=== PATIENT | female | born 1940 | race Caucasian/White ===

== ENCOUNTER 2016-12-07 12:36 | Emergency (ER) | payer OTHER ==
[~2016-12-07 12:36] MED LIST: ASPIRIN EC81 MG PO; ASPIRIN325 MG PO; ATROVENT0.03 % IN; CARAFATE EQUIVAL1 GM PO; CARVEDILOL6.25 MG PO; CLOPIDOGREL75 MG PO; FUROSEMIDE20 MG PO; LISINOPRIL/HYDR1 TA2 PO; LISINOPRIL10 MG PO; PROAIR HFA IN; PROTONIX40 MG PO; SIMVASTATIN40 MG PO; SPIRONOLACTONE25 MG PO; SUCRALFATE1 GM PO
--- NOTE | 2016-12-07 15:46 | ED NURSING NOTES ---
Clinical Report - Nurses [place] [address] [place] [address] 12/07/2016 12:38 [id number] TRI[facility] Triage time 12:50. Acuity: LEVEL 4. Chief Complaint: RIGHT LOWER EXTREMITY PAIN. Alert. No acute distress. SHAHAB COMA SCORE: Shahab Coma Scale: 15- eyes open spontaneously (4); best verbal response- oriented x 4 (5); best motor response- obeys commands (6). --13:11 Miladys Contreras R.N. 13:08 12/07/16. BP: 130/96. HR: 70. RR: 18. O2 saturation: 100% on room air. Temp: 98.2 F (oral). Pain level now: 02/23. --13:11 Miladys Contreras R.N. Weight: 57.1 kg stated. Height/Length: 66 inches Per Patient. BMI: 20.3. --12:56 Miladys Contreras R.N. Medications Aspirin Oral (Tablet 81 mg) 1 tablet, day. Atrovent HFA Inhalation 2 puffs, 4x a day. Carvedilol 12.5mg , 2x a day. Lisinopril Oral 10 mg, daily. ProAir HFA Inhalation 2 puffs, 4-6 hrs as needed. Simvastatin Oral 40 mg, daily. --12:52 Miladys Contreras R.N. Flexeril 10 mg, PRN. --12:52 Miladys Contreras R.N. Lasix Oral 5 mg, daily. --12:52 Miladys Contreras R.N. Melatonin Oral (Tablet 3 mg), qHS. --12:53 Miladys Contreras R.N. Medication/allergy information source: the patient's family. --13:11 Miladys Contreras R.N. Allergies No Known Drug Allergy. --12:53 Miladys Contreras R.N. History Arrived by private vehicle. Historian: patient and family. Accompanied by family. Primary physician (Leida). No injury occurred. This occurred (about 45 days). ( saw her doctor last week and got Flexeril and Tylenos). She has had trouble walking. SOCIAL HX: Heavy tobacco smoker- less than 1 pack per day. No alcohol use or drug use. LEARNING NEEDS ASSESSMENT: The learning needs assessment revealed no barriers. FALL RISK ASSESSMENT: Fall risk assessment completed. Risk factors identified include patient age greater than 65 years and impairment of mobility. FUNCTIONAL ASSESSMENT: Functional assessment performed: independent with the activities of daily living; mobility impairment present- this mobility impairment is an ongoing problem. lives alone now but will be going home with family. --13:11 Miladys Contreras R.N. PROBLEMS: Sciatica. Congestive Heart Failure. Hypomagnesemia. Atrial Fibrillation. Hemorrhoids. Enlarged xyphoid. Hiatal Hernia. Ulcer (stomach). Abdominal Pain. UTI - Urinary Tract Infection. Hypertension. Immunizations. CVA - Cerebrovascular Accident. --12:54 Miladys Contreras R.N. ADDITIONAL SURGERIES: Back Surgery. Colonoscopy. Feet surgery. Rt hip repair. --12:54 Miladys Contreras R.N. Assessment GENERAL / NEURO / PSYCH: Alert. Oriented X 4. Appears in no acute distress. Patient appears calm and cooperative. RESPIRATORY: Respirations not labored. --13:11 Miladys Contreras R.N. Interventions ID band on patient. To waiting room. --13:11 Miladys Contreras R.N. DISPOSITION / DISCHARGE Departure time: 1430. The patient left the Emergency Department without being seen by a physician. The patient appears to be alert, oriented x4 and in no acute distress. She stated is leaving the ED due to the long waiting time (gave chart to admitting rep). She left the Emergency Department in a wheelchair and via private vehicle. --14:48 Miladys Contreras R.N. Locked/Released at 12/07/2016 15:46 by Miladys Contreras R.N.
--- NOTE | 2016-12-07 15:46 | ED MAR SUMMARY ---
..... Medication Administration Record [facility] [address] [place], [place] [id number] Patient: CORINA LOCKETT Visit ID: [id number] 75y, F Weight: 57.1 kg Height/Length: 66 in BMI: 20.3 ALLERGIES: No Known Drug Allergy
--- NOTE | 2016-12-07 15:46 | ED MED RECONCILIATION SUMMARY ---
Patient: CORINA LOCKETT Medication Reconciliation Report [facility] VisitID: [id number] [address] [place] [address] 75y, F Registration Date/Time: 12/07/2016 Weight: 57.1 kg Height/Length: 66 in. BMI: 20.3 ALLERGIES: No Known Drug Allergy The patient's Home Medications are listed below: THE FOLLOWING MEDICATIONS NEED TO BE RECONCILED: Aspirin Oral (81 mg) 1 tablet, day Atrovent HFA Inhalation 2 puffs, 4x a day Carvedilol 12.5mg , 2x a day Flexeril 10 mg, PRN Lasix Oral 5 mg, daily Lisinopril Oral 10 mg, daily Melatonin Oral (3 mg), qHS ProAir HFA Inhalation 2 puffs, 4-6 hrs Simvastatin Oral 40 mg, daily The source(s) of the original Home Medication information: patient's family member The following Medications were given to the patient in the Emergency Department: None. The following Medications were prescribed to the patient: None.
--- NOTE | 2016-12-07 15:46 | ED MAR SUMMARY ---
..... Medication Administration Record [facility] [address] [place] [place], [place] [id number] Patient: CORINA LOCKETT Visit ID: [id number] 75y, F Weight: 57.1 kg Height/Length: 66 in BMI: 20.3 ALLERGIES: No Known Drug Allergy
--- NOTE | 2016-12-07 15:46 | ED NURSING NOTES ---
Clinical Report - Nurses [place] [address] [place] [address] 12/07/2016 12:38 [id number] TRI[facility] Triage time 12:50. Acuity: LEVEL 4. Chief Complaint: RIGHT LOWER EXTREMITY PAIN. Alert. No acute distress. SHAHAB COMA SCORE: Shahab Coma Scale: 15- eyes open spontaneously (4); best verbal response- oriented x 4 (5); best motor response- obeys commands (6). --13:11 Miladys Contreras R.N. 13:08 12/07/16. BP: 130/96. HR: 70. RR: 18. O2 saturation: 100% on room air. Temp: 98.2 F (oral). Pain level now: 02/23. --13:11 Miladys Contrears R.N. Weight: 57.1 kg stated. Height/Length: 66 inches Per Patient. BMI: 20.3. --12:56 Miladys Contreras R.N. Medications Aspirin Oral (Tablet 81 mg) 1 tablet, day. Atrovent HFA Inhalation 2 puffs, 4x a day. Carvedilol 12.5mg , 2x a day. Lisinopril Oral 10 mg, daily. ProAir HFA Inhalation 2 puffs, 4-6 hrs as needed. Simvastatin Oral 40 mg, daily. --12:52 Miladys Contreras R.N. Flexeril 10 mg, PRN. --12:52 Miladys Contreras R.N. Lasix Oral 5 mg, daily. --12:52 Miladys Contreras R.N. Melatonin Oral (Tablet 3 mg), qHS. --12:53 Miladys Contreras R.N. Medication/allergy information source: the patient's family. --13:11 Miladys Contreras R.N. Allergies No Known Drug Allergy. --12:53 Miladys Contreras R.N. History Arrived by private vehicle. Historian: patient and family. Accompanied by family. Primary physician (Leida). No injury occurred. This occurred (about 45 days). ( saw her doctor last week and got Flexeril and Tylenos). She has had trouble walking. SOCIAL HX: Heavy tobacco smoker- less than 1 pack per day. No alcohol use or drug use. LEARNING NEEDS ASSESSMENT: The learning needs assessment revealed no barriers. FALL RISK ASSESSMENT: Fall risk assessment completed. Risk factors identified include patient age greater than 65 years and impairment of mobility. FUNCTIONAL ASSESSMENT: Functional assessment performed: independent with the activities of daily living; mobility impairment present- this mobility impairment is an ongoing problem. lives alone now but will be going home with family. --13:11 Miladys Contreras R.N. PROBLEMS: Sciatica. Congestive Heart Failure. Hypomagnesemia. Atrial Fibrillation. Hemorrhoids. Enlarged xyphoid. Hiatal Hernia. Ulcer (stomach). Abdominal Pain. UTI - Urinary Tract Infection. Hypertension. Immunizations. CVA - Cerebrovascular Accident. --12:54 Miladys Contreras R.N. ADDITIONAL SURGERIES: Back Surgery. Colonoscopy. Feet surgery. Rt hip repair. --12:54 Miladys Contreras R.N. Assessment GENERAL / NEURO / PSYCH: Alert. Oriented X 4. Appears in no acute distress. Patient appears calm and cooperative. RESPIRATORY: Respirations not labored. --13:11 Miladys Contreras R.N. Interventions ID band on patient. To waiting room. --13:11 Miladys Contreras R.N. DISPOSITION / DISCHARGE Departure time: 1430. The patient left the Emergency Department without being seen by a physician. The patient appears to be alert, oriented x4 and in no acute distress. She stated is leaving the ED due to the long waiting time (gave chart to admitting rep). She left the Emergency Department in a wheelchair and via private vehicle. --14:48 Miladys Contreras R.N. Locked/Released at 12/07/2016 15:46 by Miladys Contreras R.N.
--- NOTE | 2016-12-07 15:46 | ED MED RECONCILIATION SUMMARY ---
Patient: CORINA LOCKETT Medication Reconciliation Report [facility] VisitID: [id number] [address] [place] [address] 75y, F Registration Date/Time: 12/07/2016 Weight: 57.1 kg Height/Length: 66 in. BMI: 20.3 ALLERGIES: No Known Drug Allergy The patient's Home Medications are listed below: THE FOLLOWING MEDICATIONS NEED TO BE RECONCILED: Aspirin Oral (81 mg) 1 tablet, day Atrovent HFA Inhalation 2 puffs, 4x a day Carvedilol 12.5mg , 2x a day Flexeril 10 mg, PRN Lasix Oral 5 mg, daily Lisinopril Oral 10 mg, daily Melatonin Oral (3 mg), qHS ProAir HFA Inhalation 2 puffs, 4-6 hrs Simvastatin Oral 40 mg, daily The source(s) of the original Home Medication information: patient's family member The following Medications were given to the patient in the Emergency Department: None. The following Medications were prescribed to the patient: None.
== END 2016-12-07 14:30 | disposition left against medical advice (07) ==
LOC: ED SRH 12:36
DX: Z53.21 Procedure and treatment not carried out due to patient leaving prior to being seen by health care provider (principal)

== ENCOUNTER 2016-12-09 14:31 | Emergency (ER) | payer OTHER ==
--- NOTE | 2016-12-09 16:11 | DIAGNOSTIC IMAGING REPORT ---
PROCEDURE: XR LUMBAR SPINE 2 OR 3 VIEWS INDICATION: LOWER BACK PAIN TECHNIQUE: Three views. COMPARISON: None. FINDINGS: Severe spondylosis with spinal stenosis at L4-5 and L5-S1. Mild spondylosis T12-L3. No evidence of an acute process or fracture. IMPRESSION: 1. Severe spondylosis with spinal stenosis and L4-5 and L5-S1.
--- NOTE | 2016-12-09 16:33 | ED NURSING NOTES ---
Clinical Report - Nurses [facility] [address] [place] [address] 12/09/2016 14:33 Patient: CORINA LOCKETT TRIAGE Triage time 1440. Acuity: LEVEL 3. Chief Complaint: RIGHT LOWER EXTREMITY PAIN and SWELLING. --14:54 Odalys Garcia R.N. 14:40 12/09/16. BP: 147/84. HR: 93. RR: 18. O2 saturation: 96%. Temp: 99 F. Pain level now: 03/26. --14:54 Odalys Garcia R.N. Weight: 57.1 kg stated. Height/Length: 66 inches Per Patient. BMI: 20.3. --14:51 Odalys Garcia R.N. Medications Aspirin Oral (Tablet 81 mg) 1 tablet, day. Atrovent HFA Inhalation 2 puffs, 4x a day. Carvedilol 12.5mg , 2x a day. Flexeril 10 mg, PRN. Lasix Oral 5 mg, daily. Lisinopril Oral 10 mg, daily. Melatonin Oral (Tablet 3 mg), qHS. ProAir HFA Inhalation 2 puffs, 4-6 hrs as needed. --14:52 Odalys Garcia R.N. Simvastatin Oral 40 mg, daily. --14:52 Odalys Garcia R.N. Allergies No Known Drug Allergy. --14:52 Odalys Garcia R.N. History Arrived by private vehicle. Historian: patient. Accompanied by daughter. Primary physician (howard). This occurred (has had right sided hip and back pain x 3 weeks, pt brought in by daughter because she hasnt been able to go upstairs into her own house for 3 days and has had to sleep at her daughters house. Pt also states that left hip is hurting now also). She has had swelling and trouble walking. ( has hx of hip replacement, and sciatica). SOCIAL HX: Light tobacco smoker (cigarette)- less than 1/2 a pack per day. No alcohol use or drug use. --14:54 Odalys Garcia R.N. PROBLEMS: Sciatica. Congestive Heart Failure. Hypomagnesemia. Atrial Fibrillation. Hemorrhoids. Enlarged xyphoid. Hiatal Hernia. Ulcer (stomach). Abdominal Pain. UTI - Urinary Tract Infection. Hypertension. CVA - Cerebrovascular Accident. --14:51 Odalys Garcia R.N. ADDITIONAL SURGERIES: Back Surgery. Colonoscopy. Feet surgery. Rt hip repair. --14:51 Odalys Garcia R.N. Interventions To treatment room. --14:54 Odalys Garcia R.N. PHYSICAL ASSESSMENT 14:40. To room via wheelchair. Patient gowned. GENERAL / NEURO / PSYCH: Alert. Appears in pain. EXTREMITIES: Limited ROM present. Right hip: tenderness and swelling. Limited ROM. SKIN: Skin is warm and dry. --14:55 Odalys Garcia R.N. NURSING PROGRESS NOTES 14:40. Patient identifiers checked. Call light placed in reach. Side rails up. Bed placed in lowest position. Patient ready for evaluation- chart flagged. --14:54 Odalys Garcia R.N. 15:09 12/09/2016 Percocet (Oxycodone-Acetaminophen) PO 5/325 mg Tablets 1 tab given. Allergies verified, confirmed 5 rights and sedative warning given to the patient. --15:09 Odalys Garcia R.N. 15:09 12/09/16. Patient transported to radiology by stretcher with tech. --15:10 Odalys Garcia R.N. 15:23 12/09/16. Patient returned from radiology by stretcher with tech. --15:23 Odalys Garcia R.N. 16:15 Pt states she has no pain in her hip after meds given "It is such a relief". Pt ambulated to bathroom with walker- repair technician escorting pt . Pt giselle well. --16:22 Odalys Garcia R.N. <<STRICKEN ENTRY-- 16:38 12/09/16. BP: 110/50. HR: 100. RR: 18. O2 saturation: 94% on nasal cannula at 4 liters/minute. --16:39 Coker, Jazmyn, R.N. --END STRIKE>> Charted on wrong patient. --16:39 Jazmyn Coker R.N. 16:50 daughter here to give pt a ride home. given dc instructions, pt declined w/c out, stated she wanted to walk--but used a walker for a few steps before stating that she" didnt want that either". --19:30 Odalys Garcia R.N. DISPOSITION / DISCHARGE 17:00. Condition at departure: unchanged and stable. No learning barriers present. Discharge instructions provided and reviewed with the patient and family. Reviewed medication(s) (vicodin). Treatments reviewed (ice). Patient and family verbalized understanding. Written instructions provided in Irish. The patient was discharged home and accompanied by family. She left the Emergency Department ambulatory and via private vehicle. Driving (daughter). --19:29 Odalys Garcia R.N. 17:00 12/09/16. BP: 140/82. HR: 84. RR: 18. O2 saturation: 98%. Temp: deferred. Pain level now: 08/26. --19:29 Odalys Garcia R.N. Locked/Released at 12/09/2016 19:31 by Odlays Garcia R.N.
--- NOTE | 2016-12-09 16:33 | ED NURSING NOTES ---
Clinical Report - Nurses [facility] [address] [place] [address] 12/09/2016 14:33 Patient: CORINA LOCKETT TRIAGE Triage time 1440. Acuity: LEVEL 3. Chief Complaint: RIGHT LOWER EXTREMITY PAIN and SWELLING. --14:54 Odalys Garcia R.N. 14:40 12/09/16. BP: 147/84. HR: 93. RR: 18. O2 saturation: 96%. Temp: 99 F. Pain level now: 03/26. --14:54 Odalys Garcia R.N. Weight: 57.1 kg stated. Height/Length: 66 inches Per Patient. BMI: 20.3. --14:51 Odalys Garcia R.N. Medications Aspirin Oral (Tablet 81 mg) 1 tablet, day. Atrovent HFA Inhalation 2 puffs, 4x a day. Carvedilol 12.5mg , 2x a day. Flexeril 10 mg, PRN. Lasix Oral 5 mg, daily. Lisinopril Oral 10 mg, daily. Melatonin Oral (Tablet 3 mg), qHS. ProAir HFA Inhalation 2 puffs, 4-6 hrs as needed. --14:52 Odalys Garcia R.N. Simvastatin Oral 40 mg, daily. --14:52 Odalys Garcia R.N. Allergies No Known Drug Allergy. --14:52 Odalys Garcia R.N. History Arrived by private vehicle. Historian: patient. Accompanied by daughter. Primary physician (howard). This occurred (has had right sided hip and back pain x 3 weeks, pt brought in by daughter because she hasnt been able to go upstairs into her own house for 3 days and has had to sleep at her daughters house. Pt also states that left hip is hurting now also). She has had swelling and trouble walking. ( has hx of hip replacement, and sciatica). SOCIAL HX: Light tobacco smoker (cigarette)- less than 1/2 a pack per day. No alcohol use or drug use. --14:54 Odalys Garcia R.N. PROBLEMS: Sciatica. Congestive Heart Failure. Hypomagnesemia. Atrial Fibrillation. Hemorrhoids. Enlarged xyphoid. Hiatal Hernia. Ulcer (stomach). Abdominal Pain. UTI - Urinary Tract Infection. Hypertension. CVA - Cerebrovascular Accident. --14:51 Odalys Garcia R.N. ADDITIONAL SURGERIES: Back Surgery. Colonoscopy. Feet surgery. Rt hip repair. --14:51 Odalys Garcia R.N. Interventions To treatment room. --14:54 Odalys Garcia R.N. PHYSICAL ASSESSMENT 14:40. To room via wheelchair. Patient gowned. GENERAL / NEURO / PSYCH: Alert. Appears in pain. EXTREMITIES: Limited ROM present. Right hip: tenderness and swelling. Limited ROM. SKIN: Skin is warm and dry. --14:55 Odalys Garcia R.N. NURSING PROGRESS NOTES 14:40. Patient identifiers checked. Call light placed in reach. Side rails up. Bed placed in lowest position. Patient ready for evaluation- chart flagged. --14:54 Odalys Garcia R.N. 15:09 12/09/2016 Percocet (Oxycodone-Acetaminophen) PO 5/325 mg Tablets 1 tab given. Allergies verified, confirmed 5 rights and sedative warning given to the patient. --15:09 Odalys Garcia R.N. 15:09 12/09/16. Patient transported to radiology by stretcher with tech. --15:10 Odalys Garcia R.N. 15:23 12/09/16. Patient returned from radiology by stretcher with tech. --15:23 Odalys Garcia R.N. 16:15 Pt states she has no pain in her hip after meds given "It is such a relief". Pt ambulated to bathroom with walker- emergency veterinary technician escorting pt . Pt giselle well. --16:22 Odalys Garcia R.N. <<STRICKEN ENTRY-- 16:38 12/09/16. BP: 110/50. HR: 100. RR: 18. O2 saturation: 94% on nasal cannula at 4 liters/minute. --16:39 Coker, Jazmyn, R.N. --END STRIKE>> Charted on wrong patient. --16:39 Jazmyn Coker R.N. 16:50 daughter here to give pt a ride home. given dc instructions, pt declined w/c out, stated she wanted to walk--but used a walker for a few steps before stating that she" didnt want that either". --19:30 Odalys Garcia R.N. DISPOSITION / DISCHARGE 17:00. Condition at departure: unchanged and stable. No learning barriers present. Discharge instructions provided and reviewed with the patient and family. Reviewed medication(s) (vicodin). Treatments reviewed (ice). Patient and family verbalized understanding. Written instructions provided in French. The patient was discharged home and accompanied by family. She left the Emergency Department ambulatory and via private vehicle. Driving (daughter). --19:29 Odalys Garcia R.N. 17:00 12/09/16. BP: 140/82. HR: 84. RR: 18. O2 saturation: 98%. Temp: deferred. Pain level now: 08/26. --19:29 Odalys Garcia R.N. Locked/Released at 12/09/2016 19:31 by Odalys Garcia R.N.
--- NOTE | 2016-12-09 16:33 | ED CLINICAL REPORT ---
Clinical Report - Physicians/Mid Levels [facility] [address] [place] [address] 12/09/2016 14:33 Patient: CORINA LOCKETT Time Seen: 15:11 Dec 09 2016. Arrived- By private vehicle. Historian- patient. HISTORY OF PRESENT ILLNESS Chief Complaint: (Low back pain). The injury occurred 3 weeks. Occurred at home. No neck pain or loss of consciousness. (Patient reports low back pain extending into the right leg. Denies any fall. Patient denies saddle anesthesia. Denies any urgency or frequency. Denies any urinary incontinence. He reports pains of the bilateral lower extremities is intermittent.). REVIEW OF SYSTEMS No loss of vision or chest pain. All systems otherwise negative, except as recorded above. PAST HISTORY History of hip fracture. Problems: Sciatica. Congestive Heart Failure. Hypomagnesemia. Atrial Fibrillation. Hemorrhoids. Enlarged xyphoid. Hiatal Hernia. Ulcer (stomach). Abdominal Pain. UTI - Urinary Tract Infection. Hypertension. Immunizations. CVA - Cerebrovascular Accident. Additional Surgeries: Back Surgery. Colonoscopy. Feet surgery. Rt hip repair. Medications: Simvastatin Oral 40 mg, daily. Aspirin Oral (Tablet 81 mg) 1 tablet, day. Atrovent HFA Inhalation 2 puffs, 4x a day. Carvedilol 12.5mg , 2x a day. Flexeril 10 mg, PRN. Lasix Oral 5 mg, daily. Lisinopril Oral 10 mg, daily. Melatonin Oral (Tablet 3 mg), qHS. ProAir HFA Inhalation 2 puffs, 4-6 hrs as needed. Allergies: No Known Drug Allergy. SOCIAL HISTORY Smoker- current status unknown. No alcohol use or drug use. ADDITIONAL NOTES The nursing notes have been reviewed. PHYSICAL EXAM Vital Signs: 12/09/2016 14:40 BP: 147/84. HR: 93. RR: 18. O2 saturation: 96%. Temp: 99 F. Pain level now: 9/10. Appearance: Alert. No backboard. ENT: No dental injury. No hemotympanum. Neck: Painless ROM. Non-tender. No vertebral tenderness. CVS: (irreg/irreg). Respiratory: Breath sounds normal. Chest nontender. No chest wall injury or decreased breath sounds. Abdomen: No visible injury. Back: Vertebral point tenderness. Tenderness in the right lower and left lower lumbar area. Skin: Skin intact. Skin warm. Extremities: Normal inspection. Pelvis stable. Neuro: [place] Coma Scale: 15- eyes open spontaneously (4); best verbal response- oriented x 3 (5); best motor response- obeys commands (6). Oriented X 3. No motor deficit. LABS, X-RAYS, AND EKG LS-Spine X-rays: (IMPRESSION: 1. Severe spondylosis with spinal stenosis and L4-5 and L5-S1. Electronically Final signed by:Nic Anthony MD 12/09/2016 4:12:24 PM). PROGRESS AND PROCEDURES Course of Care: There are no risks for spinal epidural abscess or hematoma as patient is without any risk factors such as IVDA or evidence of active infection, no midline tenderness to percussion. Hence I do not feel emergent imaging with an MRI is indicated. However I did discuss with the patient that if these symptoms develop, or if the pain does not resolve an MRI may need to be done outpatient, or in the ED if symptoms worsen acutely or new onset of the above mentioned symptoms develop. Beyond age patient with no red plaque, ambulatory. Significant arthritic changes in the lumbar spine. Pain ongoing for 3 weeks. No acute fall or trauma. Patient is stable. Physical exam findings are improved. Symptoms better. Patient/family counseled. Disposition: Discharged. CLINICAL IMPRESSION Chronic lumbar back pain. INSTRUCTIONS Apply ice. No crutches or splint. Elevate affected areas above chest level. Prescription Medications: Hydrocodone/APAP 5mg / 325mg: take 1 orally every 6 hours as needed for pain. Dispense fifteen (15). No refill. Follow-up: Follow up with your doctor in three days. (Electronically signed by Isabela Desouza P.A.-C 12/09/2016 17:22)
--- NOTE | 2016-12-09 16:33 | ED ORDER SUMMARY ---
..... Patient: CORINA LOCKETT OrderSheet [facility] VisitID: [id number] [place] [address] 75y, F Registration Date/Time: 12/09/2016 ORDER SHEET Weight: 57.1 kg (stated) Allergies: No Known Drug Allergy GENERAL ORDERS: Lumbar Spine 2 or 3V Urgent (15:02 12/09/2016 Nelson Suresh) (Ack 15:07 PWeiler ER Tech1) (15:23 DDean R.N.) MEDICATION ORDERS: Percocet PO 5/325 mg (HIGH ALERT MEDICATION, NOW) (15:02 12/09/2016 Nelson Suresh) (Ack 15:06 DDean R.N.) (15:09 DDean R.N.) IV FLUIDS: ORDER SHEET NOTES: [Electronically signed by Isabela Desouza P.A.-C (17:22 12/09/2016)] [Electronically signed by Odalys Garcia R.N. (19:31 12/09/2016)] [Electronically locked/signed by Odalys Garcia R.N. (19:31 12/09/2016)]
--- NOTE | 2016-12-09 16:33 | ED ORDER SUMMARY ---
..... Patient: CORINA LOCKETT OrderSheet [facility] VisitID: [id number] [place] [address] 75y, F Registration Date/Time: 12/09/2016 ORDER SHEET Weight: 57.1 kg (stated) Allergies: No Known Drug Allergy GENERAL ORDERS: Lumbar Spine 2 or 3V Urgent (15:02 12/09/2016 Nelson Suresh) (Ack 15:07 PWeiler ER Tech1) (15:23 DDean R.N.) MEDICATION ORDERS: Percocet PO 5/325 mg (HIGH ALERT MEDICATION, NOW) (15:02 12/09/2016 Nelson Suresh) (Ack 15:06 DDean R.N.) (15:09 DDean R.N.) IV FLUIDS: ORDER SHEET NOTES: [Electronically signed by Isabela Desouza P.A.-C (17:22 12/09/2016)] [Electronically signed by Odalys Garcia R.N. (19:31 12/09/2016)] [Electronically locked/signed by Odalys Garcia R.N. (19:31 12/09/2016)]
--- NOTE | 2016-12-09 19:31 | ED MED RECONCILIATION SUMMARY ---
Patient: CORINA LOCKETT Medication Reconciliation Report [facility] VisitID: [id number] [place] [address] 75y, F Registration Date/Time: 12/09/2016 Weight: 57.1 kg Height/Length: 66 in. BMI: 20.3 ALLERGIES: No Known Drug Allergy The patient's Home Medications are listed below: THE FOLLOWING MEDICATIONS NEED TO BE RECONCILED: Aspirin Oral (81 mg) 1 tablet, day Atrovent HFA Inhalation 2 puffs, 4x a day Carvedilol 12.5mg , 2x a day Flexeril 10 mg, PRN Lasix Oral 5 mg, daily Lisinopril Oral 10 mg, daily Melatonin Oral (3 mg), qHS ProAir HFA Inhalation 2 puffs, 4-6 hrs Simvastatin Oral 40 mg, daily The source(s) of the original Home Medication information: Not obtained. The following Medications were given to the patient in the Emergency Department: Percocet [PO] PO 1 tab, administered: 12/09/2016 3:09:00 PM The following Medications were prescribed to the patient: Hydrocodone/APAP 5mg / 325mg: take 1 orally every 6 hours as needed for pain. Dispense fifteen (15). No refill. -- Isabela Desouza P.A.-C
--- NOTE | 2016-12-09 19:31 | ED MED RECONCILIATION SUMMARY ---
Patient: CORINA LOCKETT Medication Reconciliation Report [facility] VisitID: [id number] [place] [address] 75y, F Registration Date/Time: 12/09/2016 Weight: 57.1 kg Height/Length: 66 in. BMI: 20.3 ALLERGIES: No Known Drug Allergy The patient's Home Medications are listed below: THE FOLLOWING MEDICATIONS NEED TO BE RECONCILED: Aspirin Oral (81 mg) 1 tablet, day Atrovent HFA Inhalation 2 puffs, 4x a day Carvedilol 12.5mg , 2x a day Flexeril 10 mg, PRN Lasix Oral 5 mg, daily Lisinopril Oral 10 mg, daily Melatonin Oral (3 mg), qHS ProAir HFA Inhalation 2 puffs, 4-6 hrs Simvastatin Oral 40 mg, daily The source(s) of the original Home Medication information: Not obtained. The following Medications were given to the patient in the Emergency Department: Percocet [PO] PO 1 tab, administered: 12/09/2016 3:09:00 PM The following Medications were prescribed to the patient: Hydrocodone/APAP 5mg / 325mg: take 1 orally every 6 hours as needed for pain. Dispense fifteen (15). No refill. -- Isabela Desouza P.A.-C
--- NOTE | 2016-12-09 19:31 | ED DISCHARGE INSTRUCTIONS ---
Patient: CORINA LOCKETT General Instructions [facility] VisitID: [id number] [place] [address] 75y, F Registration Date/Time: 12/09/2016 Chronic lumbar back pain. INSTRUCTIONS Apply ice. No crutches or splint. Elevate affected areas above chest level. Prescription Medications: Hydrocodone/APAP 5mg / 325mg: take 1 orally every 6 hours as needed for pain. Dispense fifteen (15). No refill. Follow-up: Follow up with your doctor in three days. ADDITIONAL INFORMATION Back Pain [Acute Or Chronic] Back pain is usually caused by an injury to the muscles or ligaments of the spine. Sometimes the disks that separate each bone in the spine may bulge and cause pain by pressing on a nearby nerve. Back pain may also appear after a sudden twisting/bending force (such as in a car accident), after a simple awkward movement, or lifting something heavy with poor body positioning. In either case, muscle spasm is often present and adds to the pain. Acute back pain usually gets better in one to two weeks. Back pain related to disk disease, arthritis in the spinal joints or spinal stenosis (narrowing of the spinal canal) can become chronic and last for months or years. Unless you had a physical injury (for example, a car accident or fall) X-rays are usually not ordered for the initial evaluation of back pain. If pain continues and does not respond to medical treatment, x-rays and other tests may be performed at a later time. Home Care: You may need to stay in bed the first few days. But, as soon as possible, begin sitting or walking to avoid problems with prolonged bed rest (muscle weakness, worsening back stiffness and pain, blood clots in the legs). When in bed, try to find a position of comfort. A firm mattress is best. Try lying flat on your back with pillows under your knees. You can also try lying on your side with your knees bent up towards your chest and a pillow between your knees. Avoid prolonged sitting. This puts more stress on the lower back than standing or walking. During the first two days after injury, apply an ICE PACK to the painful area for 20 minutes every 2-4 hours. This will reduce swelling and pain. HEAT (hot shower, hot bath or heating pad) works well for muscle spasm. You can start with ice, then switch to heat after two days. Some patients feel best alternating ice and heat treatments. Use the one method that feels the best to you. You may use acetaminophen (Tylenol) or ibuprofen (Motrin, Advil) to control pain, unless another pain medicine was prescribed. [NOTE: If you have chronic liver or kidney disease or ever had a stomach ulcer or GI bleeding, talk with your doctor before using these medicines.] Be aware of safe lifting methods and do not lift anything over 15 pounds until all the pain is gone. Follow Up with your doctor or this facility if your symptoms do not start to improve after one week. Physical therapy may be needed. [NOTE: If X-rays were taken, they will be reviewed by a radiologist. You will be notified of any new findings that may affect your care.] Get Prompt Medical Attention if any of the following occur: Pain becomes worse or spreads to your legs Weakness or numbness in one or both legs Loss of bowel or bladder control Numbness in the groin or genital area Hydrocodone Bitartrate, Acetaminophen Oral tablet What is this medicine? ACETAMINOPHEN; HYDROCODONE (a set a BISHOP nilesh fen; jigar droe KOE done) is a pain reliever. It is used to treat mild to moderate pain. How should I use this medicine? Take this medicine by mouth. Swallow it with a full glass of water. Follow the directions on the prescription label. If the medicine upsets your stomach, take the medicine with food or milk. Do not take more than you are told to take. Talk to your fire safety manager regarding the use of this medicine in children. This medicine is not approved for use in children. What side effects may I notice from receiving this medicine? Side effects that you should report to your doctor or health eye care professional as soon as possible: allergic reactions like skin rash, itching or hives, swelling of the face, lips, or tongue breathing problems confusion feeling faint or lightheaded, falls stomach pain yellowing of the eyes or skin Side effects that usually do not require medical attention (report to your doctor or health eye care professional if they continue or are bothersome): nausea, vomiting stomach upset What may interact with this medicine? alcohol antihistamines isoniazid medicines for depression, anxiety, or psychotic disturbances medicines for sleep muscle relaxants naltrexone narcotic medicines (opiates) for pain phenobarbital ritonavir tramadol What if I miss a dose? If you miss a dose, take it as soon as you can. If it is almost time for your next dose, take only that dose. Do not take double or extra doses. Where should I keep my medicine? Keep out of the reach of children. This medicine can be abused. Keep your medicine in a safe place to protect it from theft. Do not share this medicine with anyone. Selling or giving away this medicine is dangerous and against the law. Store at room temperature between 15 and 30 degrees C (59 and 86 degrees F). Protect from light. Keep container tightly closed. Throw away any unused medicine after the expiration date. Discard unused medicine and used packaging carefully. Pets and children can be harmed if they find used or lost packages. What should I tell my health care provider before I take this medicine? They need to know if you have any of these conditions: brain tumor Crohn's disease, inflammatory bowel disease, or ulcerative colitis drink more than 3 alcohol-containing drinks per day drug abuse or addiction head injury heart or circulation problems kidney disease or problems going to the bathroom liver disease lung disease, asthma, or breathing problems an unusual or allergic reaction to acetaminophen, hydrocodone, other opioid analgesics, other medicines, foods, dyes, or preservatives or trying to get breast-feeding What should I watch for while using this medicine? Tell your doctor or health eye care professional if your pain does not go away, if it gets worse, or if you have new or a different type of pain. You may develop tolerance to the medicine. Tolerance means that you will need a higher dose of the medicine for pain relief. Tolerance is normal and is expected if you take the medicine for a long time. Do not suddenly stop taking your medicine because you may develop a severe reaction. Your body becomes used to the medicine. This does NOT mean you are addicted. Addiction is a behavior related to getting and using a drug for a non-medical reason. If you have pain, you have a medical reason to take pain medicine. Your doctor will tell you how much medicine to take. If your doctor wants you to stop the medicine, the dose will be slowly lowered over time to avoid any side effects. You may get drowsy or dizzy when you first start taking the medicine or change doses. Do not drive, use machinery, or do anything that may be dangerous until you know how the medicine affects you. Stand or sit up slowly. There are different types of narcotic medicines (opiates) for pain. If you take more than one type at the same time, you may have more side effects. Give your health care provider a list of all medicines you use. Your doctor will tell you how much medicine to take. Do not take more medicine than directed. Call emergency for help if you have problems breathing. The medicine will cause constipation. Try to have a bowel movement at least every 2 to 3 days. If you do not have a bowel movement for 3 days, call your doctor or health eye care professional. Too much acetaminophen can be very dangerous. Do not take Tylenol (acetaminophen) or medicines that contain acetaminophen with this medicine. Many non-prescription medicines contain acetaminophen. Always read the labels carefully. You have been given the following additional information: Back Pain (Acute Or Chronic) Hydrocodone Bitartrate, Acetaminophen Oral tablet (Electronically signed by Isabela Desouza P.A.-C 12/09/2016 17:22)
--- NOTE | 2016-12-09 19:31 | ED MAR SUMMARY ---
..... Medication Administration Record [facility] [address] [place] [address] Patient: CORINA LOCKETT Visit ID: [id number] 75y, F Weight: 57.1 kg Height/Length: 66 in BMI: 20.3 ALLERGIES: No Known Drug Allergy Given 15:09 12/09/2016 Jose, Odalys RKeira Medication Administered: PERCOCET [PO] (OXYCODONE-ACETAMINOPHEN), Dose: 1 tab 5/325 mg Tablets PO. Medication Ordered: Percocet PO 5/325 mg (HIGH ALERT MEDICATION, NOW).
--- NOTE | 2016-12-09 19:31 | ED MAR SUMMARY ---
..... Medication Administration Record [facility] [address] [place] [address] Patient: CORINA LOCKETT Visit ID: [id number] 75y, F Weight: 57.1 kg Height/Length: 66 in BMI: 20.3 ALLERGIES: No Known Drug Allergy Given 15:09 12/09/2016 Jose, Odalys RKeira Medication Administered: PERCOCET [PO] (OXYCODONE-ACETAMINOPHEN), Dose: 1 tab 5/325 mg Tablets PO. Medication Ordered: Percocet PO 5/325 mg (HIGH ALERT MEDICATION, NOW).
== END 2016-12-09 17:00 | disposition home or self-care (01) ==
LOC: ED SRH 14:31
DX: M54.5 Low back pain (principal); G89.29 Other chronic pain